=== PATIENT | female | born 1955 | race African-American/Black ===

== ENCOUNTER → 2018-12-06 | Outpatient (CLI) | payer MEDICARE, MEDICAID ==
[2018-12-06 10:13] LABS: ABSOLUTE EOSINOPHILS # (AUTO) 0.2 10^3/uL (0.0-0.6); ABSOLUTE LYMPHOCYTES (AUTO) 1.8 10^3/uL (0.5-4.7); ABSOLUTE MONOCYTES (AUTO) 0.3 10^3/uL (0.1-1.4); ABSOLUTE NEUT (AUTO) 2.4 10^3/uL (1.7-8.2); BASOPHILS % (AUTO) 0.9 % (0-2); EOSINOPHILS % (AUTO) 4.4 % (0-6); HEMATOCRIT 29.3 % (36.0-47.0); HEMOGLOBIN 9.8 g/dL (12.0-15.5); LYMPHOCYTES % (AUTO) 38.2 % (13-45); MEAN CORPUSCULAR HEMOGLOBIN 29.1 pg (27.0-33.4); MEAN CORPUSCULAR HGB CONC 33.5 g/dL (32.0-36.0); MEAN CORPUSCULAR VOLUME 87 fl (80-97); MONOCYTES % (AUTO) 6.7 % (3-13); PLATELET COUNT 146 10^3/uL (150-450); RED BLOOD COUNT 3.38 10^6/uL (3.72-5.28); RED CELL DISTRIBUTION WIDTH 13.9 % (11.5-14.0); SEGMENTED NEUTROPHILS % (AUTO) 49.8 % (42-78); TOTAL CELLS COUNTED % (AUTO) 100 %; WHITE BLOOD COUNT 4.8 10^3/uL (4.0-10.5)
[2018-12-06 10:44] LABS: ALANINE AMINOTRANSFERASE 9 U/L (9-52); ALBUMIN 4.1 g/dL (3.5-5.0); ALKALINE PHOSPHATASE 77 U/L (38-126); ANION GAP 7 (5-19); ASPARTATE AMINO TRANSFERASE 21 U/L (14-36); BILIRUBIN,DIRECT 0.4 mg/dL (0.0-0.4); BILIRUBIN,TOTAL 0.4 mg/dL (0.2-1.3); BLOOD UREA NITROGEN 23 mg/dL (7-20); CALCIUM 9.8 mg/dL (8.4-10.2); CARBON DIOXIDE 27 mmol/L (22-30); CHLORIDE 107 mmol/L (98-107); GLUCOSE 141 mg/dL (75-110); POTASSIUM 4.7 mmol/L (3.6-5.0); SODIUM 140.6 mmol/L (137-145); TOTAL PROTEIN 7.3 g/dL (6.3-8.2)
[2018-12-06 10:51] LABS: APPEARANCE,URINE CLEAR; BILIRUBIN,URINE NEGATIVE (NEGATIVE); COLOR,URINE STRAW; GLUCOSE, URINE NEGATIVE (NEGATIVE); KETONES,URINE NEGATIVE (NEGATIVE); LEUKOCYTE ESTERASE,URINE NEGATIVE (NEGATIVE); NITRITE,URINE NEGATIVE (NEGATIVE); PROTEIN,URINE 100 mg/dL (NEGATIVE); URINE SPECIFIC GRAVITY 1.008; UROBILINOGEN,URINE NEGATIVE mg/dL (<2.0)
--- NOTE | 2018-12-06 11:11 | RADIOLOGY REPORT (SQ) ---
EXAM DESCRIPTION: U/S RETROPERITON (RENAL/AORTA) COMPLETED DATE/TIME: 12/06/2018 9:39 am REASON FOR STUDY: CKD III (N18.3) N18.3 CHRONIC KIDNEY DISEASE, STAGE 3 (MODERATE) COMPARISON: None. TECHNIQUE: Dynamic and static grayscale images acquired of the kidneys and bladder and recorded on P ACS. Additional selected color Doppler and spectral images recorded. LIMITATIONS: None. FINDINGS: RIGHT KIDNEY: Normal size, 10.5 cm. Normal echogenicity. No solid or suspicious masses. No hydronephrosis. No calcifications. LEFT KIDNEY: Normal size, 9.4 cm. Normal echogenicity. No solid or suspicious masses. No hydronephro sis. No calcifications. BLADDER: No masses. Ureteral jets are not seen. OTHER FINDINGS: No other significant finding. IMPRESSION: NORMAL RENAL AND BLADDER ULTRASOUND. TECHNICAL DOCUMENTATION: JOB ID: [id number] [employer]- All Rights Reserved Reading location - IP/workstation name: [email or web address]
== END ==
LOC: RAD 08:44
PROVIDERS: ATTEND Internal Medicine Nephrology
DX: I12.9 Hypertensive chronic kidney disease with stage 1 through stage 4 chronic kidney disease, or unspecified chronic kidney disease (principal); N18.3 Chronic kidney disease, stage 3 (moderate); B20 Human immunodeficiency virus [HIV] disease
CPT/HCPCS: 36415; 76770; 80053; 81001; 85025; 86038; 86225

== ENCOUNTER 2019-12-23 07:51 | Outpatient (CLI) | payer MEDICARE, MEDICAID ==
[~2019-12-23 07:51] MED LIST: FERRIC CARBOXYMALTOSE 750 MG in NORMAL SALINE 250 ML IV PRN
[2019-12-23 08:11] VITALS: BP 157/78
== END 2019-12-23 09:35 | disposition home or self-care (01) ==
LOC: II 07:51 → 5TH 07:59 → II 09:35
PROVIDERS: ATTEND Physician Assistant Medical
DX: D50.8 Other iron deficiency anemias (principal)
CPT/HCPCS: 96365; J7050; J1439

== ENCOUNTER → 2020-04-10 | Outpatient (CLI) | payer MEDICARE, MEDICAID ==
--- NOTE | 2020-04-10 11:48 | RADIOLOGY REPORT (SQ) ---
EXAM DESCRIPTION: CHEST PA/LATERAL IMAGES COMPLETED DATE/TIME: 04/10/2020 10:49 am REASON FOR STUDY: ENCNTR FOR GENERAL ADULT MEDICAL EXAM W/O ABNORMAL FINDINGS COMPARISON: None. EXAM PARAMETERS: NUMBER OF VIEWS: two views TECHNIQUE: Digital Frontal and Lateral radiographic views of the chest acquired. RADIATION DOSE: NA LIMITATIONS: none FINDINGS: LUNGS AND PLEURA: No opacities, masses or pneumothorax. No pleural effusion. MEDIASTINUM AND HILAR STRUCTURES: No masses or contour abnormalities. HEART AND VASCULAR STRUCTURES: Heart normal size. No evidence for failure. BONES: No acute findings. HARDWARE: None in the chest. OTHER: No other significant finding. IMPRESSION: NO SIGNIFICANT RADIOGRAPHIC FINDING IN THE CHEST. TECHNICAL DOCUMENTATION: JOB ID: [id number] [employer]- All Rights Reserved Reading location - IP/workstation name: [email or web address]
--- NOTE | 2020-04-10 14:41 | EKG REPORT ---
SEVERITY:- ABNORMAL ECG - SINUS RHYTHM LEFT VENTRICULAR HYPERTROPHY ANTERIOR Q WAVES, POSSIBLY DUE TO LVH : Confirmed by: Tasha Menchaca MD 10-Apr-2020 14:41:03
== END ==
LOC: OD 10:25
PROVIDERS: ATTEND Nurse Practitioner
DX: Z00.00 Encounter for general adult medical examination without abnormal findings (principal)
CPT/HCPCS: 71046; 93005; 93010

== ENCOUNTER → 2020-04-18 | Outpatient (CLI) | payer MEDICARE, MEDICAID | LOC: WI 09:16 | PROVIDERS: ATTEND Nurse Practitioner | DX: Z12.31 Encounter for screening mammogram for malignant neoplasm of breast (principal) | CPT/HCPCS: 77063; 77067 ==

== ENCOUNTER → 2020-05-31 | Outpatient (CLI) | payer MEDICARE, MEDICAID ==
--- NOTE | 2020-05-31 14:44 | WOMENS IMAGING REPORT ---
EXAM DESCRIPTION: U/S BREAST UNILAT LIMITED IMAGES COMPLETED DATE/TIME: 05/31/2020 9:36 am REASON FOR STUDY: LEFT R92.8 OTHER ABNORMAL AND INCONCLUSIVE FINDINGS ON DIAGNOSTIC IMAGING; RIGHT R 92.8 OTHER ABNORMAL AND INCONCLUSIVE FINDINGS ON DIAGNOSTIC IMAGING R92.2 INCONCLUSIVE MAMMOGRAM COMPARISON: None. TECHNIQUE: Real-time and static grayscale imaging performed of the right and left breast targeted to the area of clinical/mammographic concern. Selected color Doppler images recorded. LIMITATIONS: None. FINDINGS: MASS: Indeterminate findings demonstrated on screening mammography within the right breast are revealed to be on the basis of a 3 mm simple cyst. No correlative finding is demonstrated for l eft breast mammographic findings. Focused evaluation of the area of concern reveals normal underlyin g parenchymal tissues. OTHER: No other significant finding. IMPRESSION: No suspicious findings detected by ultrasound. BIRAD: 1 Negative. RECOMMENDATION: RECOMMENDED FOLLOW-UP: Recommend continued annual screening mammography. COMMENT: The [employer] (ACR) has developed recommendations for screening MRI of the breasts in certain patient populations, to be used in conjunction with mammography. Breast MRI s urveillance may be appropriate for women with more than 20% lifetime risk of developing breast cancer as determined by genetic testing, significant family history of the disease, or history of mantle r adiation for Hodgkins Disease. ACR Practice Guidelines 2008. TECHNICAL DOCUMENTATION: JOB ID: [id number] 2010 [employer]- All Rights Reserved Reading location - IP/workstation name: [email or web address]
== END ==
LOC: WI 08:36
PROVIDERS: ATTEND Nurse Practitioner
DX: R92.8 Other abnormal and inconclusive findings on diagnostic imaging of breast (principal)
CPT/HCPCS: 76642

== ENCOUNTER 2020-08-03 06:22 | Day surgery (SDC) | payer MEDICARE, MEDICAID ==
[2020-08-03 06:49] LABS: HEMATOCRIT 33.6 % (36.0-47.0); HEMOGLOBIN 11.2 g/dL (12.0-15.5); MEAN CORPUSCULAR HGB CONC 33.2 g/dL (32.0-36.0); MEAN CORPUSCULAR VOLUME 84 fl (80-97); PLATELET COUNT 210 10^3/uL (150-450); RED BLOOD COUNT 3.99 10^6/uL (3.72-5.28); RED CELL DISTRIBUTION WIDTH 15.7 % (11.5-14.0); WHITE BLOOD COUNT 5.6 10^3/uL (4.0-10.5)
[2020-08-03 07:01] LABS: INTERNATIONAL RATION (INR) 0.85; PARTIAL THROMBOPLASTIN TIME 35.1 SEC (23.5-35.8); PROTHROMBIN TIME 11.8 SEC (11.4-15.4)
[2020-08-03 07:10] LABS: BLOOD UREA NITROGEN 48 mg/dL (7-20); GLUCOSE 112 mg/dL (75-110)
[2020-08-03] MEDS ORDERED: AMLODIPINE BESYLATE 10 MG TABLET PO ONE (09:30)
[2020-08-03] MEDS ORDERED: LISINOPRIL 10 MG TABLET PO ONE (09:30)
[2020-08-03] MEDS ORDERED: FENTANYL CITRATE INJ/PF 100 MCG/2 ML AMPUL ONE (11:09)
[2020-08-03] MEDS ORDERED: MIDAZOLAM 2 MG/2 ML INJ ONE (11:09)
[2020-08-03 13:29] VITALS: BP 186/101
== END 2020-08-03 12:00 | disposition home or self-care (01) ==
LOC: RAD 06:22
PROVIDERS: ATTEND Physician Assistant Medical
DX: I12.9 Hypertensive chronic kidney disease with stage 1 through stage 4 chronic kidney disease, or unspecified chronic kidney disease (principal); N18.4 Chronic kidney disease, stage 4 (severe); N17.9 Acute kidney failure, unspecified; R80.9 Proteinuria, unspecified; D63.1 Anemia in chronic kidney disease; L93.2 Other local lupus erythematosus; N25.0 Renal osteodystrophy; Z79.899 Other long term (current) drug therapy
CPT/HCPCS: 96372; 36415; 84520; 82565; 82947; 85027; 85610; 85730; J2250; A9270 ×2; J3010

== ENCOUNTER → 2020-08-08 | Outpatient (CLI) | payer MEDICARE, MEDICAID ==
--- NOTE | 2020-08-08 15:54 | RADIOLOGY REPORT (SQ) ---
EXAM DESCRIPTION: U/S RETROPERITON (RENAL/AORTA) IMAGES COMPLETED DATE/TIME: 08/08/2020 3:32 pm REASON FOR STUDY: N17.9 ACUTE KIDNEY FAILURE, UNSPECIFIED R80.1 PERSISTENT PROTEINURIA, UNSPECIFIED N17.9 ACUTE KIDNEY FAILURE, UNSPECIFIED COMPARISON: 12/06/2018 TECHNIQUE: Dynamic and static grayscale images acquired of the kidneys and bladder and recorded on P ACS. Additional selected color Doppler and spectral images recorded. LIMITATIONS: None. FINDINGS: RIGHT KIDNEY: The right kidney measures 10.7 cm in length. Echogenicity is increased. This is new from 2019. No solid or suspicious masses. No hydronephrosis. Small hypoechoic lesion consistent with simple cyst in the midpole. No calcifications. LEFT KIDNEY: The left kidney measures 8.7 cm in length. This is slightly smaller when compared to 2 019. The left kidney is echogenic. Normal echogenicity. No solid or suspicious masses. No hydr onephrosis. No calcifications. BLADDER: No masses. OTHER FINDINGS: No other significant finding. IMPRESSION: Echogenic kidneys consistent with medical renal disease. TECHNICAL DOCUMENTATION: JOB ID: [id number] 2010 [employer]- All Rights Reserved Reading location - IP/workstation name: [email or web address]
== END ==
LOC: RAD 14:47
PROVIDERS: ATTEND Internal Medicine Nephrology
DX: N17.9 Acute kidney failure, unspecified (principal); R80.1 Persistent proteinuria, unspecified; L93.1 Subacute cutaneous lupus erythematosus
CPT/HCPCS: 76770

== ENCOUNTER 2020-08-17 13:10 | Inpatient (IN) | payer MEDICARE, MEDICAID ==
--- NOTE | 2020-08-17 13:35 | ER Document Report ---
ED Medical Screen (RME) - General Chief Complaint: High Blood Pressure Stated Complaint: ELEVATED BLOOD PRESSURE Time Seen by Provider: 08/17/20 13:29 Mode of Arrival: Wheelchair Information source: Patient Notes: 65-year-old female presented the radiology for biopsies of her kidney and liver that were ordered by Dr. Keen to find out why her lower back and kidney were deteriorating. She states when she got to the procedure her blood pressure was too high and they would not do the procedure so they brought her to the emergency room to evaluate her high blood pressure. In the emergency room her blood pressure is 206/100 on the left and 206/92 on the right according to the vital signs taken in triage. She states she has never had high blood pressure but her mother has. She states she does not have renal failure and she does not do dialysis she just has problems with your kidney and that is what he is trying to find out with these biopsies which medications are causing the problem . Checked a manual blood pressure on her left arm and got 164/88. I have greeted and performed a rapid initial assessment of this patient. A comprehensive ED assessment and evaluation of the patient, analysis of test results and completion of medical decision making process will be conducted by an additional ED providers. TRAVEL OUTSIDE OF THE [place] IN LAST 30 DAYS: No - Related Data Allergies/Adverse Reactions: castor oil Allergy (Verified 08/03/20 06:34) ibuprofen [From Advil] Allergy (Verified 08/03/20 06:34) Past Medical History - Past Medical History Cardiac Medical History: Reports: Hx Hypertension Denies: Hx Coronary Artery Disease, Hx Heart Attack Pulmonary Medical History: Denies: Hx Asthma, Hx Bronchitis, Hx COPD, Hx Pneumonia Neurological Medical History: Denies: Hx Cerebrovascular Accident, Hx Seizures Musculoskeltal Medical History: Denies Hx Arthritis - Immunizations Hx Diphtheria, Pertussis, Tetanus Vaccination: No - UNKNOWN Physical Exam - Vital signs Vitals: Temp Pulse Resp BP Pulse Ox 97.5 F 60 16 206/92 H 100 08/17/20 13:17 08/17/20 13:17 08/17/20 13:17 08/17/20 13:17 08/17/20 13:17 Course - Vital Signs Vital signs: Temp Pulse Resp BP Pulse Ox 97.5 F 60 16 206/100 H 100 08/17/20 13:17 08/17/20 13:17 08/17/20 13:17 08/17/20 13:19 08/17/20 13:17
--- NOTE | 2020-08-17 14:56 | EKG REPORT ---
SEVERITY:- ABNORMAL ECG - SINUS BRADYCARDIA PROBABLE LEFT ATRIAL ABNORMALITY PROBABLE LEFT VENTRICULAR HYPERTROPHY : Confirmed by: Anderson Powell MD 17-Aug-2020 14:56:05
--- NOTE | 2020-08-17 15:10 | ER Document Report ---
ED Blood Pressure Problem - General Chief Complaint: High Blood Pressure Stated Complaint: ELEVATED BLOOD PRESSURE Time Seen by Provider: 08/17/20 13:29 Mode of Arrival: Wheelchair TRAVEL OUTSIDE OF THE [place] IN LAST 30 DAYS: No - HPI Notes: 65-year-old female to the emergency department from the surgery center with complaints of elevated blood pressure. She states that Dr. Keen, her caddy, had sent her to the surgery center for kidney biopsy. However, when she got there this morning her blood pressure was in the 200s. She was given 15 mg IV labetalol, 1 mg of Ativan, Vasotec and she did not have improvement of her symptoms. She states that she feels well. She denies any chest pain, shortness of breath, nausea, vomiting, diarrhea. Review of prior labs shows that her creatinine has significantly changed. She initially was 1.95 in November 2018 and today her creatinine is 7.32. She states that her caddy gave her blood pressure medicine and also a blood pressure medicine to take every Thursday/Thursday/Thursday should she experience leg swelling. She states she has not had any leg swelling and has not had to take that medicine. She is not sure what blood pressure medicine Dr. Keen gave her. Of note she is HIV positive and takes Joluca. - Related Data Allergies/Adverse Reactions: castor oil Allergy (Verified 08/17/20 14:21) ibuprofen [From Advil] Allergy (Verified 08/17/20 14:21) Past Medical History - General Information source: Patient - Social History Smoking Status: Never Smoker Frequency of alcohol use: None Drug Abuse: None Family History: None - Past Medical History Cardiac Medical History: Reports: Hx Hypertension Denies: Hx Coronary Artery Disease, Hx Heart Attack Pulmonary Medical History: Denies: Hx Asthma, Hx Bronchitis, Hx COPD, Hx Pneumonia Neurological Medical History: Denies: Hx Cerebrovascular Accident, Hx Seizures Musculoskeletal Medical History: Denies Hx Arthritis - Immunizations Hx Diphtheria, Pertussis, Tetanus Vaccination: No - UNKNOWN Review of Systems - Review of Systems Constitutional: denies: Chills, Fever EENT: No symptoms reported Cardiovascular: denies: Chest pain, Palpitations, Dyspnea, Syncope, Dizziness, Edema Respiratory: denies: Cough, Short of breath, Wheezing Gastrointestinal: denies: Abdominal pain, Diarrhea, Nausea, Vomiting Genitourinary: denies: Burning, Dysuria, Discharge, Frequency Musculoskeletal: denies: Back pain, Gout, Joint pain, Joint swelling -: Yes All other systems reviewed and negative Physical Exam - Vital signs Vitals: Temp Pulse Resp BP Pulse Ox 97.5 F 60 16 206/92 H 100 08/17/20 13:17 08/17/20 13:17 08/17/20 13:17 08/17/20 13:17 08/17/20 13:17 Interpretation: Hypertensive - General General appearance: Appears well, Alert In distress: None - HEENT Head: Normocephalic, Atraumatic Eyes: Normal Pupils: PERRL Neck: Normal, Supple - Respiratory Respiratory status: No respiratory distress Chest status: Nontender. No: Accessory muscle use Breath sounds: Normal. No: Rales, Rhonchi, Wheezing Chest palpation: Normal - Cardiovascular Rhythm: Regular Heart sounds: Normal auscultation Murmur: No Notes: no pedal edema - Abdominal Inspection: Normal Distension: No distension Bowel sounds: Normal Tenderness: Nontender Organomegaly: No organomegaly - Back Back: Normal, Nontender - Extremities General upper extremity: Normal inspection, Nontender, Normal color, Normal ROM, Normal temperature General lower extremity: Normal inspection, Nontender, Normal color, Normal ROM, Normal temperature, Normal weight bearing - Neurological Neuro grossly intact: Yes Cognition: Normal Orientation: AAOx4 Gillespie Coma Scale Eye Opening: Spontaneous Gillespie Coma Scale Verbal: Oriented Gillespie Coma Scale Motor: Obeys Commands Jimena Coma Scale Total: 15 Speech: Normal Cranial nerves: Normal Cerebellar coordination: Normal Motor strength normal: LUE, RUE, LLE, RLE Additional motor exam normals: Equal shoe stitcher Sensory: Normal - Psychological Associated symptoms: Normal affect, Normal mood - Skin Skin Temperature: Warm Skin Moisture: Dry Skin Color: Normal Course - Re-evaluation Re-evalutation: 08/17/20 16:13 Noted labs. Creatinine is absent. 7.32. Chest x-ray is negative. EKG is reassuring. Discussed in length further with patient. She continues to have accelerated blood pressure here in the emergency department and have given her hydralazine. She does not want to be admitted for further evaluation. She has medical capacity. Will page our caddy cost control specialist to discuss her. Was able to flush out a little bit better her blood pressure medicine that Dr. Keen has her on. She is taking clonidine 0.1 mg twice a day. She is also taking Lasix as needed for leg swelling Wednesdays or Fridays which she has not ne eded. She continues to take her antivirals. She states that her last CD4 count and viral load which was about 3 months ago was good. Have placed a page to Dr. Gan, caddy cost control specialist and will await her phone call. Did discuss this with my ER attending Dr. Greene and she agrees with the plan. 08/17/20 21:[address] Gan. She voices true concern about the patient going home. She feels like she needs to leave AMA if she will not stay. She states that they really need to get the renal biopsy to try to figure out what is going on with her renal dysfunction that is new starting in July of this year. She does not think that the patient needs dialysis. The patient can be convinced to stay, she would like for blood pressure control and a biopsy of her kidneys to be done. Spoke with the patient at length with her son bedside. I explained that it was important for her to stay so that her blood pressure could get under better control and so that the kidney biopsy could be done. Explained that risk of leaving could be stroke if her blood pressure continued to run exceptionally high. Patient states that she will stay for admission. Spoke with Dr. Linares, hospitalist. He agrees with excepting the patient. He is aware of my conversation with Dr. Gan. He will come down and see the patient. He does not want me to give any further blood pressure medicine. He will attempt to schedule a renal biopsy tomorrow if possible and if not possible tomorrow, will attempt at the beginning of the week. Impression: Accelerated hypertension with acute kidney injury. Uncertain cause of acute kidney injury. Patient has been to try to get renal biopsy twice now on keeps presenting with accelerated high blood pressure. Recently was changed to clonidine twice a day with furosemide as needed. She will be admitted to the hospitalist service. Patient agrees with the plan. - Vital Signs Vital signs: Temp Pulse Resp BP Pulse Ox 97.5 F 60 22 H 194/96 H 99 08/17/20 13:17 08/17/20 13:17 08/17/20 20:23 08/17/20 20:23 08/17/20 20:23 - Laboratory Result Diagrams: 08/17/20 15:05 08/17/20 15:05 Laboratory results interpreted by me: 08/17/20 08/17/20 08/17/20 15:05 15:05 15:05 RBC 3.68 L Hgb 10.1 L Hct 30.7 L RDW 15.0 H Eosinophils % (Manual) 7 H APTT 36.4 H Chloride 110 H BUN 45 H Creatinine 7.32 H Est GFR ( Amer) 7 L Est GFR (MDRD) Non-Af 6 L Albumin 3.1 L Urine Protein Urine Glucose (UA) 08/17/20 15:52 RBC Hgb Hct RDW Eosinophils % (Manual) APTT Chloride BUN Creatinine Est GFR ( Amer) Est GFR (MDRD) Non-Af Albumin Urine Protein >=500 H Urine Glucose (UA) 50 H - Diagnostic Test Radiology reviewed: Image reviewed, Reports reviewed Discharge - Discharge Clinical Impression: Accelerated hypertension, Acute kidney injury Condition: Stable Disposition: ADMITTED INPATIENT Admitting Provider: Milagros (Hospitalist) Unit Admitted: Telemetry
[2020-08-17 15:24] LABS: HEMATOCRIT 30.7 % (36.0-47.0); HEMOGLOBIN 10.1 g/dL (12.0-15.5); MEAN CORPUSCULAR HEMOGLOBIN 27.3 pg (27.0-33.4); MEAN CORPUSCULAR HGB CONC 32.8 g/dL (32.0-36.0); MEAN CORPUSCULAR VOLUME 83 fl (80-97); PLATELET COUNT 168 10^3/uL (150-450); RED BLOOD COUNT 3.68 10^6/uL (3.72-5.28); WHITE BLOOD COUNT 4.3 10^3/uL (4.0-10.5)
--- NOTE | 2020-08-17 15:29 | RADIOLOGY REPORT (SQ) ---
EXAM DESCRIPTION: CHEST SINGLE VIEW IMAGES COMPLETED DATE/TIME: 08/17/2020 3:16 pm REASON FOR STUDY: elevated blood pressure, kidney dysfunction COMPARISON: 04/10/2020 NUMBER OF VIEWS: One view. TECHNIQUE: Single frontal radiographic view of the chest acquired. LIMITATIONS: None. FINDINGS: LUNGS AND PLEURA: No opacities, masses or pneumothorax. No pleural effusion. Attenuated bl ood vessels and flattened pippa-diaphragms. MEDIASTINUM AND HILAR STRUCTURES: No masses. Contour normal. HEART AND VASCULAR STRUCTURES: Heart normal in size. Normal vasculature. BONES: No acute findings. HARDWARE: None in the chest. OTHER: No other significant finding. IMPRESSION: COPD. NO ACUTE RADIOGRAPHIC FINDING IN THE CHEST. TECHNICAL DOCUMENTATION: JOB ID: [id number] 2010 [employer]- All Rights Reserved Reading location - IP/workstation name: [email or web address]
[2020-08-17 15:31] LABS: INTERNATIONAL RATION (INR) 0.91; PROTHROMBIN TIME 12.5 SEC (11.4-15.4)
[2020-08-17 15:32] LABS: PARTIAL THROMBOPLASTIN TIME 36.4 SEC (23.5-35.8)
[2020-08-17 15:37] LABS: ALBUMIN 3.1 g/dL (3.5-5.0); ALKALINE PHOSPHATASE 105 U/L (38-126); ANION GAP 6 (5-19); ASPARTATE AMINO TRANSFERASE 20 U/L (14-36); BILIRUBIN,DIRECT 0.1 mg/dL (0.0-0.4); BILIRUBIN,TOTAL 0.2 mg/dL (0.2-1.3); BLOOD UREA NITROGEN 45 mg/dL (7-20); CALCIUM 9.4 mg/dL (8.4-10.2); CARBON DIOXIDE 22 mmol/L (22-30); CHLORIDE 110 mmol/L (98-107); GLUCOSE 98 mg/dL (75-110); POTASSIUM 4.4 mmol/L (3.6-5.0); TOTAL PROTEIN 6.4 g/dL (6.3-8.2)
[2020-08-17 15:52] LABS: ABSOLUTE LYMPHOCYTES# (MANUAL) 1.8 10^3/uL (0.5-4.7); ABSOLUTE MONOCYTES # (MANUAL) 0.4 10^3/uL (0.1-1.4); BASOPHILS % (MANUAL) 1 % (0-2); EOSINOPHILS % (MANUAL) 7 % (0-6); LYMPHOCYTES % (MANUAL) 40 % (13-45); MONOCYTES % (MANUAL) 9 % (3-13); SEGMENTED NEUTROPHILS % (MAN) 42 % (42-78); TOTAL CELLS COUNTED 100
[2020-08-17 15:54] LABS: ANISOCYTOSIS SLIGHT; OVALOCYTES SLIGHT; PLATELET COMMENT ADEQUATE; POIKILOCYTOSIS SLIGHT; TEAR DROP CELLS SLIGHT
[2020-08-17] MEDS ORDERED: HYDRALAZINE HCL INJ/PF 20 MG/1 ML SDV IV ONE (15:57)
[2020-08-17 16:27] LABS: APPEARANCE,URINE CLEAR; BILIRUBIN,URINE NEGATIVE (NEGATIVE); COLOR,URINE YELLOW; GLUCOSE, URINE 50 mg/dL (NEGATIVE); KETONES,URINE NEGATIVE (NEGATIVE); LEUKOCYTE ESTERASE,URINE NEGATIVE (NEGATIVE); NITRITE,URINE NEGATIVE (NEGATIVE); PROTEIN,URINE >=500 mg/dL (NEGATIVE); URINE SPECIFIC GRAVITY 1.012; UROBILINOGEN,URINE NEGATIVE mg/dL (<2.0)
[2020-08-17] MEDS ORDERED: ONDANSETRON HCL INJ/PF 4 MG/2 ML SDV IV PRN (19:00)
[2020-08-17] MEDS ORDERED: ACETAMINOPHEN 325 MG TABLET PO PRN (19:00)
[2020-08-17] MEDS ORDERED: ONDANSETRON 4 MG TAB.RAPDIS PO PRN (19:00)
[2020-08-17] MEDS ORDERED: LABETALOL HCL INJ 20 MG/4 ML DISP.SYRIN IV PRN ×2 (19:10→19:11)
--- NOTE | 2020-08-17 19:24 | PDOC H&P ---
History of Present Illness Admission Date/PCP: 08/17/20 17:54 History of Present Illness: YEN UPTON is a 65 year old female past medical history significant for CKD, HIV on ART, history of hep C treated previously, HTN, marijuana use who presents for hypertensive emergency with acute renal failure superimposed on CKD. Creatinine up to 7.32 with unclear baseline although previous creatinine in July was 6.39 in 2019 it was 1.95. Patient is followed by Dr. Keen in nephrology outpatient. Reportedly, there have been multiple attempts to get a renal biopsy to determine the etiology of her kidney failure and this has been unsuccessful due to the patient having severe accelerated hypertension each time the procedure is planned. On admission, patient's blood pressure was greater than 210 systolic. She states she only takes lisinopril daily and clonidine twice daily at home. Per records, it seems that she is on multiple other blood pressure medications in the past but these were stopped. Per patient, her systolic blood pressure is usually in the 140s when it is checked [facility]. Patient has known HIV and follows with Dr. Steve in [place] and infectious disease. Patient states she is in compliance with all her medications. Patient quit smoking cigarettes several years ago but smoked for total of 30 years and she continues to smoke marijuana daily for pain. Reportedly she takes Juluca for HIV. Does not appear to have this medication on formulary here and patient will need to bring in her own supply. Nephrology aware of admission and have been consulted. Possible patient may need dialysis in the near future. Past Medical History Cardiac Medical History: Reports: Hypertension Denies: Coronary Artery Disease, Myocardial Infarction Pulmonary Medical History: Denies: Asthma, Bronchitis, Chronic Obstructive Pulmonary Disease (COPD), Pneumonia Neurological Medical History: Denies: Seizures Musculoskeltal Medical History: Denies: Arthritis Hematology: Reports: Anemia - IRON INFUSIONS Past Surgical History Past Surgical History: Reports: None Social History Information Source: Patient, Emergency Med Personnel Lives with: Family Smoking Status: Former Smoker Hx Recreational Drug Use: Yes Drugs: Marijuana Hx Prescription Drug Abuse: No - Advance Directive Resuscitation Status: Full Code Surrogate healthcare decision maker:: Admitting diagnosis: Hypertensive emergency All aspects of code status discussed with patient/POA including cardioversion, chest compressions, and intubation and the patient/POA indicated they wish to be full code MPOA is designated as: SonJusto Joni Time spent: Greater than 16 minutes Family History Family History: None, CAD Parental Family History Reviewed: Yes Children Family History Reviewed: Yes Sibling(s) Family History Reviewed.: Yes Medication/Allergy Home Medications: Amlodipine Besylate [Norvasc 10 mg Tablet] 10 mg PO DAILY 08/17/20 Calcitriol [Rocaltrol] 0.25 mcg PO DAILY 08/17/20 Clonidine HCl [Clonidine HCl ER] 0.1 mg PO Q12 08/17/20 Dolutegravir/Rilpivirine [Juluca 50-25 mg Tablet] 1 tab PO DAILY 08/17/20 Furosemide [Lasix] 20 mg PO MOWEFR@1000 08/17/20 Lisinopril [Prinivil] 20 mg PO DAILY 08/17/20 Allergies/Adverse Reactions: castor oil Allergy (Verified 08/17/20 14:21) ibuprofen [From Advil] Allergy (Verified 08/17/20 14:21) Review of Systems All systems: reviewed and no additional remarkable complaints except as stated - Per HPI otherwise negative Physical Exam Vital Signs: Temp Pulse Resp BP Pulse Ox 97.5 F 60 20 215/99 H 100 08/17/20 13:17 08/17/20 13:17 08/17/20 18:00 08/17/20 17:21 08/17/20 18:00 Exam: General appearance: PRESENT: no acute distress, thin, chronically ill-appearing elderly -Serbian female Head exam: PRESENT: atraumatic, normocephalic Eye exam: PRESENT: conjunctiva pink. ABSENT: scleral icterus Mouth exam: PRESENT: moist Respiratory exam: PRESENT: clear to auscultation mary. ABSENT: rales, rhonchi, wheezes Cardiovascular exam: PRESENT: RRR. ABSENT: diastolic murmur, rubs, systolic murmur GI/Abdominal exam: PRESENT: normal bowel sounds, soft. ABSENT: distended, guarding, mass, organolmegaly, rebound, tenderness Neurological exam: PRESENT: alert, awake, oriented to person, oriented to place, oriented to time, oriented to situation Psychiatric exam: PRESENT: appropriate affect, normal mood Skin exam: PRESENT: dry, intact, warm Results Laboratory Results: 08/17/20 15:05 08/17/20 15:05 08/17/20 08/17/20 08/17/20 15:05 15:05 15:52 WBC 4.3 RBC 3.68 L Hgb 10.1 L Hct 30.7 L MCV 83 MCH 27.3 MCHC 32.8 RDW 15.0 H Plt Count 168 Seg Neutrophils % Not Reportable Sodium 138.1 Potassium 4.4 Chloride 110 H Carbon Dioxide 22 Anion Gap 6 BUN 45 H Creatinine 7.32 H Est GFR ( Amer) 7 L Glucose 98 Calcium 9.4 Total Bilirubin 0.2 AST 20 Alkaline Phosphatase 105 Total Protein 6.4 Albumin 3.1 L Urine Color YELLOW Urine Appearance CLEAR Urine pH 7.0 Ur Specific Verdi 1.012 Urine Protein >=500 H Urine Glucose (UA) 50 H Urine Ketones NEGATIVE Urine Blood NEGATIVE Urine Nitrite NEGATIVE Ur Leukocyte Esterase NEGATIVE Urine WBC (Auto) 4 Urine RBC (Auto) 1 Impressions: Chest X-Ray 08/17/20 15:04 IMPRESSION: COPD. NO ACUTE RADIOGRAPHIC FINDING IN THE CHEST. Assessment and Plan - Diagnosis (1) Hypertensive emergency Is this a current diagnosis for this admission?: Yes Plan: No CHF, only worsened renal function with SERAFIN on labs Started on nifedipine, clonidine, Cardura As needed IV labetalol for systolic blood pressure greater than 200 mmHg Echocardiogram Avoid dropping blood pressure too abruptly (2) Acute kidney injury superimposed on CKD Is this a current diagnosis for this admission?: Yes Plan: Creatinine up to 7.32 on admission, previously was 6.39 this past July and in 2019 it was 1.95 Unclear etiology, renal biopsy ordered Nephrology consulted: Patient follows with Dr. Andre WOOTEN (3) Nephrotic syndrome Is this a current diagnosis for this admission?: Yes Plan: UA with massive amount of proteinuria Nephrology following Renal biopsy (4) HTN (hypertension) Is this a current diagnosis for this admission?: Yes Plan: Treatment as above (5) HIV (human immunodeficiency virus infection) Is this a current diagnosis for this admission?: Yes Plan: Takes Juluca, not on formulary here, patient will need to bring in her own supply (6) History of hepatitis C Is this a current diagnosis for this admission?: Yes Plan: Treated and cured per patient (7) Former smoker Is this a current diagnosis for this admission?: Yes Plan: Smoked for 30 years, denies COPD (8) Marijuana use Is this a current diagnosis for this admission?: Yes Plan: Daily use for pain - Time Time Spent with patient: 35 or more minutes Smoking Cessation Education: 3 to 10 minutes Medications reviewed and adjusted accordingly: Yes Anticipated Discharge Disposition: Home, Self Care Anticipated Discharge Timeframe: within 72 hours - Inpatient Certification Based on my medical assessment, after consideration of the patient's comorbidities, presenting symptoms, or acuity I expect that the services needed warrant INPATIENT care.: Yes I certify that my determination is in accordance with my understanding of Medicare's requirements for reasonable and necessary INPATIENT services [42 CFR 412.3e].: Yes Medical Necessity: Significant Comorbidiites Make Outpatient Treatment Too Risky, Need Close Monitoring Due to Risk of Patient Decompensation, Risk of Complication if Not Cared For in Hospital, Risk of Diagnosis Which Will Require Inpatient Eval/Care/Monitoring
[2020-08-17] MEDS: CLONIDINE HCL 0.1 MG TABLET PO SCH (20:11)
[2020-08-17] MEDS: NIFEDIPINE 30 MG TAB.ER.24 PO SCH (22:00)
[2020-08-17] MEDS: DOXAZOSIN MESYLATE 2 MG TABLET PO SCH (22:00)
[2020-08-17] MEDS: HEPARIN SOD (PORCINE) 5,000 UNIT/ML 1 ML VIAL SUBCUT SCH (22:01)
[2020-08-18 05:43] LABS: ABSOLUTE EOSINOPHILS # (AUTO) 0.2 10^3/uL (0.0-0.6); ABSOLUTE LYMPHOCYTES (AUTO) 1.9 10^3/uL (0.5-4.7); ABSOLUTE MONOCYTES (AUTO) 0.3 10^3/uL (0.1-1.4); ABSOLUTE NEUT (AUTO) 1.3 10^3/uL (1.7-8.2); BASOPHILS % (AUTO) 1.1 % (0-2); EOSINOPHILS % (AUTO) 5.6 % (0-6); HEMATOCRIT 27.8 % (36.0-47.0); HEMOGLOBIN 9.4 g/dL (12.0-15.5); LYMPHOCYTES % (AUTO) 51.4 % (13-45); MEAN CORPUSCULAR HGB CONC 33.9 g/dL (32.0-36.0); MEAN CORPUSCULAR VOLUME 83 fl (80-97); MONOCYTES % (AUTO) 8.6 % (3-13); PLATELET COUNT 148 10^3/uL (150-450); RED BLOOD COUNT 3.36 10^6/uL (3.72-5.28); RED CELL DISTRIBUTION WIDTH 15.1 % (11.5-14.0); SEGMENTED NEUTROPHILS % (AUTO) 33.3 % (42-78); TOTAL CELLS COUNTED % (AUTO) 100 %; WHITE BLOOD COUNT 3.8 10^3/uL (4.0-10.5)
[2020-08-18] MEDS: CLONIDINE HCL 0.1 MG TABLET PO SCH ×3 (05:43→21:48)
[2020-08-18] MEDS: HEPARIN SOD (PORCINE) 5,000 UNIT/ML 1 ML VIAL SUBCUT SCH ×3 (05:43→21:48)
[2020-08-18 06:10] LABS: ANION GAP 6 (5-19); BLOOD UREA NITROGEN 46 mg/dL (7-20); CALCIUM 8.7 mg/dL (8.4-10.2); CARBON DIOXIDE 19 mmol/L (22-30); CHLORIDE 113 mmol/L (98-107); GLUCOSE 102 mg/dL (75-110); POTASSIUM 4.2 mmol/L (3.6-5.0)
[2020-08-18 06:22] LABS: FREE T4 (FREE THYROXINE) 1.01 ng/dL (0.78-2.19)
[2020-08-18 06:36] LABS: THYROID STIMULATING HORMONE 1.27 uIU/mL (0.47-4.68)
[2020-08-18] MEDS: NIFEDIPINE 30 MG TAB.ER.24 PO SCH ×2 (09:42→21:47)
[2020-08-18] MEDS: DOCUSATE SODIUM 100 MG CAPSULE PO SCH (09:43)
--- NOTE | 2020-08-18 17:31 | PDOC PROGRESS REPORT ---
Subjective Subjective:: YEN UPTON is a 65 year old female past medical history significant for CKD, HIV on ART, history of hep C treated previously, HTN, marijuana use who presents for hypertensive emergency with acute renal failure superimposed on CKD. Creatinine up to 7.32 with unclear baseline although previous creatinine in July was 6.39 in 2019 it was 1.95. Patient is followed by Dr. Keen in nephrology outpatient. Reportedly, there have been multiple attempts to get a renal biopsy to determine the etiology of her kidney failure and this has been unsuccessful due to the patient having severe accelerated hypertension each time the procedure is planned. On admission, patient's blood pressure was greater than 210 systolic. She states she only takes lisinopril daily and clonidine twice daily at home. Per records, it seems that she is on multiple other blood pressure medications in the past but these were stopped. Per patient, her systolic blood pressure is usually in the 140s when it is checked at [facility]. Patient has known HIV and follows with Dr. Steve in [place] and infectious disease. Patient states she is in compliance with all her medications. Patient quit smoking cigarettes several years ago but smoked for total of 30 years and she continues to smoke marijuana daily for pain. Reportedly she takes Juluca for HIV. Does not appear to have this medication on formulary here and patient will need to bring in her own supply. Nephrology aware of admission and have been consulted. Possible patient may need dialysis in the near future. 08/18/2020 Patient's blood pressure significantly improved and her creatinine is improved as well. Patient states she was given some advice from a nephew who is a nurse who told her to stop taking all of her blood pressure medications because he believes that it is harming her kidneys and the rest of her body as well. I asked the patient to not take this advice as it will most certainly cause severe damage to not only her kidneys with rest of her body. She seems to be in agreement with our plan for now. Plan for renal biopsy on Thursday. N.p.o. at midnight prior to this. Patient has no new complaints. I have started a mult iple myeloma work-up on her with SPEP/UPEP/FLC given she has large amount of protein in her urine, unexplained renal failure, unexplained musculoskeletal pains, and HIV which confers an increased risk for myeloma. Reason For Visit: HYPERTENSIVE EMERGENCY,SERAFIN ON CKD,NEPHROTIC Physical Exam Vital Signs: Temp Pulse Resp BP Pulse Ox 98.4 F 73 16 153/68 H 100 08/18/20 13:01 08/18/20 14:00 08/18/20 13:01 08/18/20 13:01 08/18/20 13:01 Intake & Output 08/17/20 08/18/20 08/19/20 06:59 06:59 06:59 Intake Total 480 Balance 480 Weight 54.5 kg Exam: General appearance: PRESENT: no acute distress, thin, chronically ill-appearing elderly -[place] female, states she feels better today Head exam: PRESENT: atraumatic, normocephalic Eye exam: PRESENT: conjunctiva pink. ABSENT: scleral icterus Mouth exam: PRESENT: moist Respiratory exam: PRESENT: clear to auscultation mary. ABSENT: rales, rhonchi, wheezes Cardiovascular exam: PRESENT: RRR. ABSENT: diastolic murmur, rubs, systolic murmur GI/Abdominal exam: PRESENT: normal bowel sounds, soft. ABSENT: distended, guarding, mass, organolmegaly, rebound, tenderness Neurological exam: PRESENT: alert, awake, oriented to person, oriented to place, oriented to time, oriented to situation Psychiatric exam: PRESENT: appropriate affect, normal mood Skin exam: PRESENT: dry, intact, warm Results Laboratory Results: 08/18/20 05:04 08/18/20 05:04 08/18/20 08/18/20 08/18/20 05:04 05:04 05:04 WBC 3.8 L RBC 3.36 L Hgb 9.4 L Hct 27.8 L MCV 83 MCH 28.0 MCHC 33.9 RDW 15.1 H Plt Count 148 L Seg Neutrophils % 33.3 L Sodium 138.2 Potassium 4.2 Chloride 113 H Carbon Dioxide 19 L Anion Gap 6 BUN 46 H Creatinine 6.60 H Est GFR ( Amer) 8 L Glucose 102 Calcium 8.7 Phosphorus 7.0 H Magnesium 1.7 TSH 1.27 Free T4 1.01 Impressions: Chest X-Ray 08/17/20 15:04 IMPRESSION: COPD. NO ACUTE RADIOGRAPHIC FINDING IN THE CHEST. Assessment and Plan - Diagnosis (1) Hypertensive emergency Is this a current diagnosis for this admission?: Yes (2) Acute kidney injury superimposed on CKD Is this a current diagnosis for this admission?: Yes (3) Nephrotic syndrome Is this a current diagnosis for this admission?: Yes (4) HTN (hypertension) Is this a current diagnosis for this admission?: Yes (5) HIV (human immunodeficiency virus infection) Is this a current diagnosis for this admission?: Yes (6) History of hepatitis C Is this a current diagnosis for this admission?: Yes (7) Former smoker Is this a current diagnosis for this admission?: Yes (8) Marijuana use Is this a current diagnosis for this admission?: Yes - Plan Summary Summary: (1) Hypertensive emergency Is this a current diagnosis for this admission?: Yes Plan: No CHF, only worsened renal function with SERAFIN on labs Started on nifedipine, clonidine, Cardura As needed IV labetalol for systolic blood pressure greater than 200 mmHg Echocardiogram pending Avoid dropping blood pressure too abruptly Significant improvement in blood pressure on current medications (2) Acute kidney injury superimposed on CKD Is this a current diagnosis for this admission?: Yes Plan: Creatinine up to 7.32 on admission, previously was 6.39 this past July and in 2019 it was 1.95 Unclear etiology, renal biopsy ordered Nephrology consulted: Patient follows with Dr. Andre WOOTEN (3) Nephrotic syndrome Is this a current diagnosis for this admission?: Yes Plan: UA with massive amount of proteinuria Nephrology following Renal biopsy on 08/20 (4) HTN (hypertension) Is this a current diagnosis for this admission?: Yes Plan: Treatment as above (5) HIV (human immunodeficiency virus infection) Is this a current diagnosis for this admission?: Yes Plan: Takes Juluca, not on formulary here, patient will need to bring in her own supply (6) History of hepatitis C Is this a current diagnosis for this admission?: Yes Plan: Treated and cured per patient (7) Former smoker Is this a current diagnosis for this admission?: Yes Plan: Smoked for 30 years, denies COPD (8) Marijuana use Is this a current diagnosis for this admission?: Yes Plan: Daily use for pain - Time Time Spent with patient: 15-24 minutes Medications reviewed and adjusted accordingly: Yes Anticipated Discharge Disposition: Home, Self Care Anticipated Discharge Timeframe: within 72 hours - Inpatient Certification Based on my medical assessment, after consideration of the patient's comorbidities, presenting symptoms, or acuity I expect that the services needed warrant INPATIENT care.: Yes I certify that my determination is in accordance with my understanding of Medicare's requirements for reasonable and necessary INPATIENT services [42 CFR 412.3e].: Yes Medical Necessity: Significant Comorbidiites Make Outpatient Treatment Too Risky, Need Close Monitoring Due to Risk of Patient Decompensation, Need for Surgery, Risk of Complication if Not Cared For in Hospital, Risk of Diagnosis Which Will Require Inpatient Eval/Care/Monitoring
[2020-08-18] MEDS: DOXAZOSIN MESYLATE 2 MG TABLET PO SCH (21:46)
[2020-08-19 04:50] LABS: ABSOLUTE EOSINOPHILS # (AUTO) 0.3 10^3/uL (0.0-0.6); ABSOLUTE LYMPHOCYTES (AUTO) 2.1 10^3/uL (0.5-4.7); ABSOLUTE MONOCYTES (AUTO) 0.3 10^3/uL (0.1-1.4); ABSOLUTE NEUT (AUTO) 0.9 10^3/uL (1.7-8.2); BASOPHILS % (AUTO) 1.1 % (0-2); HEMATOCRIT 27.4 % (36.0-47.0); HEMOGLOBIN 9.2 g/dL (12.0-15.5); LYMPHOCYTES % (AUTO) 57.2 % (13-45); MEAN CORPUSCULAR HEMOGLOBIN 27.9 pg (27.0-33.4); MEAN CORPUSCULAR HGB CONC 33.5 g/dL (32.0-36.0); MEAN CORPUSCULAR VOLUME 83 fl (80-97); MONOCYTES % (AUTO) 9.2 % (3-13); PLATELET COUNT 143 10^3/uL (150-450); SEGMENTED NEUTROPHILS % (AUTO) 25.5 % (42-78); TOTAL CELLS COUNTED % (AUTO) 100 %; WHITE BLOOD COUNT 3.6 10^3/uL (4.0-10.5)
[2020-08-19 05:12] LABS: ANION GAP 6 (5-19); BLOOD UREA NITROGEN 45 mg/dL (7-20); CALCIUM 8.9 mg/dL (8.4-10.2); CARBON DIOXIDE 21 mmol/L (22-30); CHLORIDE 110 mmol/L (98-107); GLUCOSE 112 mg/dL (75-110); POTASSIUM 4.5 mmol/L (3.6-5.0)
[2020-08-19] MEDS: CLONIDINE HCL 0.1 MG TABLET PO SCH ×3 (06:21→22:15)
[2020-08-19] MEDS: HEPARIN SOD (PORCINE) 5,000 UNIT/ML 1 ML VIAL SUBCUT SCH ×3 (06:22→22:27)
[2020-08-19] MEDS: NIFEDIPINE 30 MG TAB.ER.24 PO SCH ×2 (09:12→22:16)
[2020-08-19] MEDS: DOCUSATE SODIUM 100 MG CAPSULE PO SCH (09:13)
--- NOTE | 2020-08-19 14:36 | PDOC PROGRESS REPORT ---
Subjective Subjective:: YEN UPTON is a 65 year old female past medical history significant for CKD, HIV on ART, history of hep C treated previously, HTN, marijuana use who presents for hypertensive emergency with acute renal failure superimposed on CKD. Creatinine up to 7.32 with unclear baseline although previous creatinine in July was 6.39 in 2019 it was 1.95. Patient is followed by Dr. Keen in nephrology outpatient. Reportedly, there have been multiple attempts to get a renal biopsy to determine the etiology of her kidney failure and this has been unsuccessful due to the patient having severe accelerated hypertension each time the procedure is planned. On admission, patient's blood pressure was greater than 210 systolic. She states she only takes lisinopril daily and clonidine twice daily at home. Per records, it seems that she is on multiple other blood pressure medications in the past but these were stopped. Per patient, her systolic blood pressure is usually in the 140s when it is checked at [facility]. Patient has known HIV and follows with Dr. Steve in [place] and infectious disease. Patient states she is in compliance with all her medications. Patient quit smoking cigarettes several years ago but smoked for total of 30 years and she continues to smoke marijuana daily for pain. Reportedly she takes Juluca for HIV. Does not appear to have this medication on formulary here and patient will need to bring in her own supply. Nephrology aware of admission and have been consulted. Possible patient may need dialysis in the near future. 08/18/2020 Patient's blood pressure significantly improved and her creatinine is improved as well. Patient states she was given some advice from a nephew who is a nurse who told her to stop taking all of her blood pressure medications because he believes that it is harming her kidneys and the rest of her body as well. I asked the patient to not take this advice as it will most certainly cause severe damage to not only her kidneys with rest of her body. She seems to be in agreement with our plan for now. Plan for renal biopsy on Thursday. N.p.o. at midnight prior to this. Patient has no new complaints. I have [facility] her with SPEP/UPEP/FLC given she has large amount of protein in her urine, unexplained renal failure, unexplained musculoskeletal pains, and HIV which confers an increased risk for myeloma. 08/19/2020 Myeloma work-up is not yet back and this may still be pending when the patient is discharged. I discussed with her she was getting results from her outpatient physicians and she agreed. Renal biopsy tomorrow, n.p.o. at midnight tonight. Blood pressure has seen a substantial improvement from admission and systolics are hanging in the 130s currently. Creatinine is little bit higher at 6.98. I discussed with the patient that it is possible her kidneys have permanent damage in this baby her new personal normal creatinine. No new complaints. Reason For Visit: HYPERTENSIVE EMERGENCY,SERFAIN ON CKD,NEPHROTIC Physical Exam Vital Signs: Temp Pulse Resp BP Pulse Ox 98.5 F 91 11 L 133/77 H 100 08/19/20 09:07 08/19/20 07:48 08/19/20 07:48 08/19/20 07:48 08/19/20 07:48 Intake & Output 08/18/20 08/19/20 08/20/20 06:59 06:59 06:59 Intake Total 700 Balance 700 Weight 54.5 kg 56.3 kg Exam: General appearance: PRESENT: no acute distress, thin, chronically ill-appearing elderly -[place] female, states she is glad her blood pressure is more controlled Head exam: PRESENT: atraumatic, normocephalic Eye exam: PRESENT: conjunctiva pink. ABSENT: scleral icterus Mouth exam: PRESENT: moist Respiratory exam: PRESENT: clear to auscultation mary. ABSENT: rales, rhonchi, wheezes Cardiovascular exam: PRESENT: RRR. ABSENT: diastolic murmur, rubs, systolic murmur GI/Abdominal exam: PRESENT: normal bowel sounds, soft. ABSENT: distended, guarding, mass, organolmegaly, rebound, tenderness Neurological exam: PRESENT: alert, awake, oriented to person, oriented to place, oriented to time, oriented to situation Psychiatric exam: PRESENT: appropriate affect, normal mood Skin exam: PRESENT: dry, intact, warm Results Laboratory Results: 08/19/20 04:26 08/19/20 04:26 08/19/20 08/19/20 04:26 04:26 WBC 3.6 L RBC 3.30 L Hgb 9.2 L Hct 27.4 L MCV 83 MCH 27.9 MCHC 33.5 RDW 15.0 H Plt Count 143 L Seg Neutrophils % 25.5 L Sodium 136.9 L Potassium 4.5 Chloride 110 H Carbon Dioxide 21 L Anion Gap 6 BUN 45 H Creatinine 6.98 H Est GFR ( Amer) 7 L Glucose 112 H Calcium 8.9 Impressions: Chest X-Ray 08/17/20 15:04 IMPRESSION: COPD. NO ACUTE RADIOGRAPHIC FINDING IN THE CHEST. Assessment and Plan - Diagnosis (1) Hypertensive emergency Is this a current diagnosis for this admission?: Yes (2) Acute kidney injury superimposed on CKD Is this a current diagnosis for this admission?: Yes (3) Nephrotic syndrome Is this a current diagnosis for this admission?: Yes (4) HTN (hypertension) Is this a current diagnosis for this admission?: Yes (5) HIV (human immunodeficiency virus infection) Is this a current diagnosis for this admission?: Yes (6) History of hepatitis C Is this a current diagnosis for this admission?: Yes (7) Former smoker Is this a current diagnosis for this admission?: Yes (8) Marijuana use Is this a current diagnosis for this admission?: Yes - Plan Summary Summary: (1) Hypertensive emergency Is this a current diagnosis for this admission?: Yes Plan: No CHF, only worsened renal function with SERAFIN on labs Started on nifedipine, clonidine, Cardura As needed IV labetalol for systolic blood pressure greater than 200 mmHg Echocardiogram pending Avoid dropping blood pressure too abruptly Significant improvement in blood pressure on current medications (2) Acute kidney injury superimposed on CKD Is this a current diagnosis for this admission?: Yes Plan: Creatinine up to 7.32 on admission, previously was 6.39 this past July and in 2019 it was 1.95 Unclear etiology, renal biopsy ordered Nephrology consulted: Patient follows with Dr. Andre WOOTEN (3) Nephrotic syndrome Is this a current diagnosis for this admission?: Yes Plan: UA with massive amount of proteinuria Nephrology following Renal biopsy on 08/20 Multiple myeloma work-up pending (4) HTN (hypertension) Is this a current diagnosis for this admission?: Yes Plan: Treatment as above (5) HIV (human immunodeficiency virus infection) Is this a current diagnosis for this admission?: Yes Plan: Takes Juluca, not on formulary here, patient will need to bring in her own supply (6) History of hepatitis C Is this a current diagnosis for this admission?: Yes Plan: Treated and cured per patient (7) Former smoker Is this a current diagnosis for this admission?: Yes Plan: Smoked for 30 years, denies COPD (8) Marijuana use Is this a current diagnosis for this admission?: Yes Plan: Daily use for pain - Time Time Spent with patient: 25-34 minutes Medications reviewed and adjusted accordingly: Yes Anticipated Discharge Disposition: Home, Self Care Anticipated Discharge Timeframe: within 24 hours - Inpatient Certification Based on my medical assessment, after consideration of the patient's comorbidities, presenting symptoms, or acuity I expect that the services needed warrant INPATIENT care.: Yes I certify that my determination is in accordance with my understanding of Medicare's requirements for reasonable and necessary INPATIENT services [42 CFR 412.3e].: Yes Medical Necessity: Significant Comorbidiites Make Outpatient Treatment Too Risky, Need Close Monitoring Due to Risk of Patient Decompensation, Need for Surgery, Risk of Complication if Not Cared For in Hospital, Risk of Diagnosis Which Will Require Inpatient Eval/Care/Monitoring
[2020-08-19] MEDS: DOXAZOSIN MESYLATE 2 MG TABLET PO SCH (22:15)
[2020-08-20] MEDS: HEPARIN SOD (PORCINE) 5,000 UNIT/ML 1 ML VIAL SUBCUT SCH ×2 (06:07→14:07)
[2020-08-20] MEDS: CLONIDINE HCL 0.1 MG TABLET PO SCH ×2 (06:07→14:08)
[2020-08-20 07:02] LABS: ABSOLUTE EOSINOPHILS # (AUTO) 0.3 10^3/uL (0.0-0.6); ABSOLUTE LYMPHOCYTES (AUTO) 1.7 10^3/uL (0.5-4.7); ABSOLUTE MONOCYTES (AUTO) 0.3 10^3/uL (0.1-1.4); ABSOLUTE NEUT (AUTO) 0.9 10^3/uL (1.7-8.2); BASOPHILS % (AUTO) 1.4 % (0-2); EOSINOPHILS % (AUTO) 7.9 % (0-6); HEMATOCRIT 27.5 % (36.0-47.0); HEMOGLOBIN 9.3 g/dL (12.0-15.5); LYMPHOCYTES % (AUTO) 52.9 % (13-45); MEAN CORPUSCULAR VOLUME 82 fl (80-97); MONOCYTES % (AUTO) 10.3 % (3-13); PLATELET COUNT 140 10^3/uL (150-450); RED BLOOD COUNT 3.34 10^6/uL (3.72-5.28); RED CELL DISTRIBUTION WIDTH 15.1 % (11.5-14.0); SEGMENTED NEUTROPHILS % (AUTO) 27.5 % (42-78); TOTAL CELLS COUNTED % (AUTO) 100 %; WHITE BLOOD COUNT 3.2 10^3/uL (4.0-10.5)
[2020-08-20 07:28] LABS: ANION GAP 7 (5-19); BLOOD UREA NITROGEN 46 mg/dL (7-20); CALCIUM 8.9 mg/dL (8.4-10.2); CARBON DIOXIDE 18 mmol/L (22-30); CHLORIDE 110 mmol/L (98-107); GLUCOSE 107 mg/dL (75-110); POTASSIUM 4.6 mmol/L (3.6-5.0)
[2020-08-20] MEDS ORDERED: MIDAZOLAM 2 MG/2 ML INJ ONE (09:13)
[2020-08-20] MEDS ORDERED: FENTANYL CITRATE INJ/PF 100 MCG/2 ML AMPUL ONE (09:14)
[2020-08-20] MEDS: DOCUSATE SODIUM 100 MG CAPSULE PO SCH (10:36)
[2020-08-20] MEDS: NIFEDIPINE 30 MG TAB.ER.24 PO SCH (10:36)
--- NOTE | 2020-08-20 12:51 | RADIOLOGY REPORT (SQ) ---
EXAM DESCRIPTION: CT BIOPSY RENAL IMAGES COMPLETED DATE/TIME: 08/20/2020 10:06 am REASON FOR STUDY: SERAFIN/CKD, nephrotic syndrome, HIV, Severe HTN COMPARISON: None. RADIATION DOSE: CT Rad equipment meets quality standard of care and radiation dose reduction techniq ues were employed. CTDIvol: 4.9 - 19.0 mGy. DLP: 549 mGy-cm. mGy. LIMITATIONS: None. PROCEDURE: After obtaining informed consent and explaining the risks and benefits of conscious sedat ion,the patient agreed to the procedure. Preliminary CT scanning to localize the biopsy site was performed. A site was marked on the left kid bhumi and time out was performed. Procedure was performed using CT fluoroscopy. Total exposure time: [address] fluoroscopic images were obtained and saved to PACS. IV conscious sedation was administered and physician direction by the registered nurse using 1 millig noe of Versed and 50 micrograms of fentanyl. Physiologic monitoring was provided before, during, and after sedation. The total sedation time was 30 minutes. Documentation face to face time, the performing proceduralist, spent monitoring the patient: 10 minut es. After sterile skin prep with 1% lidocaine for skin and deep tissue anesthesia, the left kidney was lo calized. A coaxial 20 gauge needle was used to obtain 4 cores of tissue from the left kidney. The bi opsy tract was embolized with Gelfoam. All CT scanners at this facility use dose modulation, iterative reconstruction, and/or weight based d osing when appropriate to reduce radiation dose to as low as reasonably achievable (ALARA). [facility]: Dose Right [facility]: CareDose [facility]: Dose Right [facility]: Teradose 4D [facility]: Zero Motorcycles FINDINGS: There were no immediate complications. Specimen was carried to cytology on sterile saline gauze and submitted to the paper making machine operator for processing. Pathology is pending at the time of dict ation. IMPRESSION: CT GUIDED LEFT KIDNEY CORTICAL BIOPSY. COMMENT: Patient medication list reviewed:Yes- Quality ID# [id number]:Eligible professional attests to docu menting in the medical record they obtained, updated, or reviewed the patient's current medications.. TECHNICAL DOCUMENTATION: JOB ID: [id number] Quality ID #[id number]: Final reports for procedures using fluoroscopy that document radiation exposure julianna gee, or exposure time and number of fluorographic images (if radiation exposure indices are not avail able) Quality ID # [id number]: Final reports with documentation of one or more dose reduction techniques (e.g., Au tomated exposure control, adjustment of the mA and/or kV according to patient size, use of iterative reconstruction technique) 2010 [employer]- All Rights Reserved Reading location - IP/workstation name: [email or web address]
[2020-08-20 14:34] VITALS: BP 206/100
[2020-08-20 15:37] LABS: FREE LAMBDA LIGHT CHAINS 74.1 mg/L (5.7-26.3)
[2020-08-20 16:37] LABS: ALBUMIN 2 2.5 g/dL (2.9-4.4); BETA GLOBULINS 0.7 g/dL (0.7-1.3); GAMMA GLOBULIN 0.7 g/dL (0.4-1.8); GLOBULIN TOTAL 2.6 g/dL (2.2-3.9); MONOCLONAL SPIKE Not Observed g/dL (Not Observ); PROTEIN TOTAL SERUM 5.1 g/dL (6.0-8.5)
[2020-08-20 17:21] LABS: KAPPA LAMBDA RATIO 2.02 (0.26-1.65)
--- NOTE | 2020-08-20 18:49 | PDOC DISCHARGE SUMMARY ---
Impression - Admit/DC Date/PCP Admission Date/Primary Care Provider: 08/17/20 17:54 Discharge Date: 08/20/20 - Discharge Diagnosis (1) Hypertensive emergency Is this a current diagnosis for this admission?: Yes (2) Acute kidney injury superimposed on CKD Is this a current diagnosis for this admission?: Yes (3) Nephrotic syndrome Is this a current diagnosis for this admission?: Yes (4) HTN (hypertension) Is this a current diagnosis for this admission?: Yes (5) HIV (human immunodeficiency virus infection) Is this a current diagnosis for this admission?: Yes (6) History of hepatitis C Is this a current diagnosis for this admission?: Yes (7) Former smoker Is this a current diagnosis for this admission?: Yes (8) Marijuana use Is this a current diagnosis for this admission?: Yes - Assessment Summary: (1) Hypertensive emergency Is this a current diagnosis for this admission?: Yes Plan: No CHF, only worsened renal function with SERAFIN on labs Started on nifedipine, clonidine, Cardura As needed IV labetalol for systolic blood pressure greater than 200 mmHg Echocardiogram pending Avoid dropping blood pressure too abruptly in the future if hypertensive emergency recurs Significant improvement in blood pressure on current medications (2) Acute kidney injury superimposed on CKD Is this a current diagnosis for this admission?: Yes Plan: Creatinine up to 7.32 on admission, previously was 6.39 this past July and in 2019 it was 1.95 Unclear etiology, renal biopsy ordered Nephrology consulted: Patient follows with Dr. Andre WOOTEN (3) Nephrotic syndrome Is this a current diagnosis for this admission?: Yes Plan: UA with massive amount of proteinuria Nephrology following Renal biopsy on 08/20 Multiple myeloma work-up pending (4) HTN (hypertension) Is this a current diagnosis for this admission?: Yes Plan: Treatment as above (5) HIV (human immunodeficiency virus infection) Is this a current diagnosis for this admission?: Yes Plan: Takes Juluca, not on formulary here, patient will need to bring in her own supply (6) History of hepatitis C Is this a current diagnosis for this admission?: Yes Plan: Treated and cured per patient (7) Former smoker Is this a current diagnosis for this admission?: Yes Plan: Smoked for 30 years, denies COPD (8) Marijuana use Is this a current diagnosis for this admission?: Yes Plan: Daily use for pain - Additional Information Resuscitation Status: Full Code Discharge Diet: As Tolerated, Other (Comments) - renal Discharge Activity: Activity As Tolerated, Balance Activity w/Rest Prescriptions: Doxazosin Mesylate [Cardura 4 mg Tablet] 4 mg PO QHS #30 tablet Clonidine HCl [Catapres] 0.2 mg PO TID #30 tablet Nifedipine [Nifedipine ER] 60 mg PO BID #60 tab.er.24 Home Medications: Calcitriol [Rocaltrol] 0.25 mcg PO DAILY 08/17/20 Dolutegravir/Rilpivirine [Juluca 50-25 mg Tablet] 1 tab PO DAILY 08/17/20 Clonidine HCl [Catapres] 0.2 mg PO TID #30 tablet 08/20/20 Doxazosin Mesylate [Cardura 4 mg Tablet] 4 mg PO QHS #30 tablet 08/20/20 Nifedipine [Nifedipine ER] 60 mg PO BID #60 tab.er.24 08/20/20 History of Present Illiness History of Present Illness: YEN UPTON is a 65 year old female past medical history significant for CKD, HIV on ART, history of hep C treated previously, HTN, marijuana use who presents for hypertensive emergency with acute renal failure superimposed on CKD. Creatinine up to 7.32 with unclear baseline although previous creatinine in July was 6.39 in 2018 it was 1.95. Patient is followed by Dr. Keen in nephrology outpatient. Reportedly, there have been multiple attempts to get a renal biopsy to determine the etiology of her kidney failure and this has been unsuccessful due to the patient having severe accelerated hypertension each time the procedure is planned. On admission, patient's blood pressure was greater than 210 systolic. She states she only takes lisinopril daily and clonidine twice daily at home. Per records, it seems that she is on multiple other blood pressure medications in the past but these were stopped. Per patient, her systolic blood pressure is usually in the 140s when it is checked at [facility]. Patient has known HIV and follows with Dr. Steve in [place] and infectious disease. Patient states she is in compliance with all her medications. Patient quit smoking cigarettes several years ago but smoked for total of 30 years and she continues to smoke marijuana daily for pain. Reportedly she takes Juluca for HIV. Does not appear to have this medication on formulary here and patient will need to bring in her own supply. Nephrology aware of admission and have been consulted. Possible patient may need dialysis in the near future. Physical Exam Vital Signs: Temp Pulse Resp BP Pulse Ox 98.4 F 72 20 158/90 H 99 08/20/20 12:00 08/20/20 12:00 08/20/20 12:00 08/20/20 12:00 08/20/20 12:00 Intake & Output 08/19/20 08/20/20 08/21/20 06:59 06:59 06:59 Intake Total 700 260 486 Balance 700 260 486 Weight 56.3 kg 56.3 kg Exam: General appearance: PRESENT: no acute distress, thin, -[place] female, smiling and happy about going home today Head exam: PRESENT: atraumatic, normocephalic Eye exam: PRESENT: conjunctiva pink. ABSENT: scleral icterus Mouth exam: PRESENT: moist Respiratory exam: PRESENT: clear to auscultation mary. ABSENT: rales, rhonchi, wheezes Cardiovascular exam: PRESENT: RRR. ABSENT: diastolic murmur, rubs, systolic murmur GI/Abdominal exam: PRESENT: normal bowel sounds, soft. ABSENT: distended, guarding, mass, organolmegaly, rebound, tenderness Neurological exam: PRESENT: alert, awake, oriented to person, oriented to place, oriented to time, oriented to situation Psychiatric exam: PRESENT: appropriate affect, normal mood Skin exam: PRESENT: dry, intact, warm Results Laboratory Results: WBC 3.2 10^3/uL (4.0-10.5) L 08/20/20 06:36 RBC 3.34 10^6/uL (3.72-5.28) L 08/20/20 06:36 Hgb 9.3 g/dL (12.0-15.5) L 08/20/20 06:36 Hct 27.5 % (36.0-47.0) L 08/20/20 06:36 MCV 82 fl (80-97) 08/20/20 06:36 MCH 28.0 pg (27.0-33.4) 08/20/20 06:36 MCHC 34.0 g/dL (32.0-36.0) 08/20/20 06:36 RDW 15.1 % (11.5-14.0) H 08/20/20 06:36 Plt Count 140 10^3/uL (150-450) L 08/20/20 06:36 Lymph % (Auto) 52.9 % (13-45) H 08/20/20 06:36 Ballard % (Auto) 10.3 % (3-13) 08/20/20 06:36 Eos % (Auto) 7.9 % (0-6) H 08/20/20 06:36 Baso % (Auto) 1.4 % (0-2) 08/20/20 06:36 Absolute Neuts (auto) 0.9 10^3/uL (1.7-8.2) L 08/20/20 06:36 Absolute Lymphs (auto) 1.7 10^3/uL (0.5-4.7) 08/20/20 06:36 Absolute Monos (auto) 0.3 10^3/uL (0.1-1.4) 08/20/20 06:36 Absolute Eos (auto) 0.3 10^3/uL (0.0-0.6) 08/20/20 06:36 Absolute Basos (auto) 0.0 10^3/uL (0.0-0.2) 08/20/20 06:36 Total Counted 100 08/17/20 15:05 Seg Neutrophils % 27.5 % (42-78) L 08/20/20 06:36 Seg Neuts % (Manual) 42 % (42-78) 08/17/20 15:05 Lymphocytes % (Manual) 40 % (13-45) 08/17/20 15:05 Atypical Lymphs % 1 % (0) 08/17/20 15:05 Monocytes % (Manual) 9 % (3-13) 08/17/20 15:05 Eosinophils % (Manual) 7 % (0-6) H 08/17/20 15:05 Basophils % (Manual) 1 % (0-2) 08/17/20 15:05 Abs Neuts (Manual) 1.8 10^3/uL (1.7-8.2) 08/17/20 15:05 Abs Lymphs (Manual) 1.8 10^3/uL (0.5-4.7) 08/17/20 15:05 Abs Monocytes (Manual) 0.4 10^3/uL (0.1-1.4) 08/17/20 15:05 Absolute Eos (Manual) 0.3 10^3/uL (0.0-0.6) 08/17/20 15:05 Abs Basophils (Manual) 0.0 10^3/uL (0.0-0.2) 08/17/20 15:05 Platelet Comment ADEQUATE 08/17/20 15:05 Poikilocytosis SLIGHT 08/17/20 15:05 Anisocytosis SLIGHT 08/17/20 15:05 Tear Drop Cells SLIGHT 08/17/20 15:05 Ovalocytes SLIGHT 08/17/20 15:05 PT 12.5 SEC (11.4-15.4) 08/17/20 15:05 INR 0.91 08/17/20 15:05 APTT 36.4 SEC (23.5-35.8) H 08/17/20 15:05 Sodium 135.0 mmol/L (137-145) L 08/20/20 06:36 Potassium 4.6 mmol/L (3.6-5.0) 08/20/20 06:36 Chloride 110 mmol/L (98-107) H 08/20/20 06:36 Carbon Dioxide 18 mmol/L (22-30) L 08/20/20 06:36 Anion Gap 7 (5-19) 08/20/20 06:36 BUN 46 mg/dL (7-20) H 08/20/20 06:36 Creatinine 6.62 mg/dL (0.52-1.25) H 08/20/20 06:36 Est GFR ( Amer) 8 (>60) L 08/20/20 06:36 Est GFR (MDRD) Non-Af 6 (>60) L 08/20/20 06:36 Glucose 107 mg/dL (75-110) 08/20/20 06:36 Calcium 8.9 mg/dL (8.4-10.2) 08/20/20 06:36 Phosphorus 7.0 mg/dL (2.5-4.5) H 08/18/20 05:04 Magnesium 1.7 mg/dL (1.6-2.3) 08/18/20 05:04 Total Bilirubin 0.2 mg/dL (0.2-1.3) 08/17/20 15:05 Direct Bilirubin 0.1 mg/dL (0.0-0.4) 08/17/20 15:05 Neonat Total Bilirubin Not Reportable 08/17/20 15:05 Neonat Direct Bilirubin Not Reportable 08/17/20 15:05 Neonat Indirect Bili Not Reportable 08/17/20 15:05 AST 20 U/L (14-36) 08/17/20 15:05 ALT 8 U/L (<35) 08/17/20 15:05 Alkaline Phosphatase 105 U/L (38-126) 08/17/20 15:05 Total Protein 6.4 g/dL (6.3-8.2) 08/17/20 15:05 Albumin 3.1 g/dL (3.5-5.0) L 08/17/20 15:05 TSH 1.27 uIU/mL (0.47-4.68) 08/18/20 05:04 Free T4 1.01 ng/dL (0.78-2.19) 08/18/20 05:04 Urine Color YELLOW 08/17/20 15:52 Urine Appearance CLEAR 08/17/20 15:52 Urine pH 7.0 (5.0-9.0) 08/17/20 15:52 Ur Specific Cunningham 1.012 08/17/20 15:52 Urine Protein >=500 mg/dL (NEGATIVE) H 08/17/20 15:52 Urine Glucose (UA) 50 mg/dL (NEGATIVE) H 08/17/20 15:52 Urine Ketones NEGATIVE mg/dL (NEGATIVE) 08/17/20 15:52 Urine Blood NEGATIVE (NEGATIVE) 08/17/20 15:52 Urine Nitrite NEGATIVE (NEGATIVE) 08/17/20 15:52 Urine Bilirubin NEGATIVE (NEGATIVE) 08/17/20 15:52 Urine Urobilinogen NEGATIVE mg/dL (<2.0) 08/17/20 15:52 Ur Leukocyte Esterase NEGATIVE (NEGATIVE) 08/17/20 15:52 Urine WBC (Auto) 4 /HPF 08/17/20 15:52 Urine RBC (Auto) 1 /HPF 08/17/20 15:52 U Hyaline Cast (Auto) 1 /LPF 08/17/20 15:52 Squamous Epi Cells Auto 3 /HPF 08/17/20 15:52 Urine Mucus (Auto) RARE /LPF 08/17/20 15:52 Urine Ascorbic Acid NEGATIVE (NEGATIVE) 08/17/20 15:52 Impressions: Chest X-Ray 08/17/20 15:04 IMPRESSION: COPD. NO ACUTE RADIOGRAPHIC FINDING IN THE CHEST. Renal Biopsy CT 08/20/20 00:00 IMPRESSION: CT GUIDED LEFT KIDNEY CORTICAL BIOPSY. Plan Plan of Treatment: Follow-up PCP Follow-up with nephrology Follow-up with infectious disease Renal biopsy, TTE, and multiple myeloma results pending: Tight Barrel Inspector will discuss the results with the patient Time Spent: Greater than 30 Minutes Stroke Is this a Stroke Patient?: No Acute Heart Failure Is this a Heart Failure Patient?: No
[2020-08-20] MEDS ORDERED: DOXAZOSIN MESYLATE 4 MG TABLET PO SCH (22:00)
--- NOTE | 2020-08-20 22:34 | XCELERA REPORT ---
[address] [address] Transthoracic Echocardiogram Report Name: YEN UPTON Age: 65 yrs Gender: Female : 1955 Patient Status: Inpatient Patient Location: [address] [place], [place] [address]A Study Date: 08/20/2020 11:21 AM Height: 66 in Weight: 125 lb BSA: 1.6 m2 Reason For Study: severe HTN Ordering Physician: NIKOS MORIN Performed By: Susan Contreras Interpretation Summary LEFT VENTRICLE: LV Systolic function: LVEF is felt to be within normal limits. Best estimate is approximately LVEF is 60 to 65%. LV Diastolic Function: Grade II diastolic dysfunction noted. Wall motion: No definite regional wall motion abnormalities are noted. Left ventricular chamber size: is within normal limit. Left ventricular wall thickness: is increased indicative of Mild LVH. RIGHT VENTRICLE: RV systolic function: is felt to be within normal limit. Right Ventricle Size: is within normal limits. LEFT ATRIUM size: WNL. RIGHT ATRIUM size: is within normal limit. INTER ATRIAL SEPTUM: No definite atrial septal defect noted however a small PFO could be missed. AORTIC ROOT: seems to be within normal limits. ASCENDING AORTA: is not well visualized. INFERIOR VENA CAVA: was not well visualized. VALVES: MITRAL VALVE: Leaflets are mildly thickened. Mobility seems to be within normal limits. Mitral Regurgitation: Trace mitral regurgitation is noted. Mitral Stenosis: No mitral stenosis noted. Mitral valve prolapse: none noted. AORTIC VALVE: seems to be trileaflet with mild thickening but adequate excursion. Aortic stenosis: No aortic stenosis noted. Aortic regurgitation: trace aortic incompetence noted. TRICUSPID VALVE: mobility and structures within normal limit. Tricuspid stenosis: no tricuspid stenosis noted. Tricuspid regurgitation: Trace tricuspid regurgitation noted. Estimated RVSP: cannot be accurately commented upon but possibly at upper limit of normal. PULMONARY VALVE: was not well visualized but no significant abnormalities suspected. Pulmonary stenosis: no pulmonary stenosis noted. Pulmonary regurgitation: mild pulmonary regurgitation noted. MASSES AND THROMBUS: No definite intracardiac thrombus or masses are noted. PERICARDIUM: No pericardial effusion was noted. IMPRESSION: 1. Normal LVEF. 2. Mild LVH noted. 3. Grade II [mild] Diastolic Dysfunction noted. 4. No significant valvular stenosis or regurgitation noted. MMode/2D Measurements & Calculations RVDd: 1.8 cm LVIDd: 4.8 cm FS: 28.5 % Ao root diam: 2.6 cm IVSd: 1.1 cm LVIDs: 3.4 cm EDV(Teich): 108.9 ml LVPWd: 0.99 cm ESV(Teich): 49.1 ml Ao root area: 5.4 cm2 EF(Teich): 54.9 % Doppler Measurements & Calculations MV E max brian: MV dec slope: Ao V2 max: LV V1 max P.3 cm/sec 220.9 cm/sec2 139.3 cm/sec 4.0 mmHg MV A max brian: MV dec time: 0.30 secAo max P.8 mmHgLV V1 max: 79.8 cm/sec 99.6 cm/sec MV E/A: 0.83 PA V2 max: PI end-d brian: TR max brian: 82.6 cm/sec 118.7 cm/sec 235.5 cm/sec PA max P.7 mmHg TR max P.2 mmHg : NIKOS MORIN Shyamal
== END 2020-08-20 15:01 | disposition home or self-care (01) | DRG 305 ==
LOC: ER 13:10 → EH 17:54 → 3W 20:53 → 4S 08-19 10:44
PROVIDERS: ADMIT Internal Medicine; ATTEND Internal Medicine
PROC: 0TB13ZX Excision of Left Kidney, Percutaneous Approach, Diagnostic (ICD-10-PCS; principal; 2020-08-20)
PROC: B24BZZ4 Ultrasonography of Heart with Aorta, Transesophageal (ICD-10-PCS; 2020-08-20)
DX: I16.1 Hypertensive emergency (principal); N17.9 Acute kidney failure, unspecified; I12.9 Hypertensive chronic kidney disease with stage 1 through stage 4 chronic kidney disease, or unspecified chronic kidney disease; Z21 Asymptomatic human immunodeficiency virus [HIV] infection status; F12.90 Cannabis use, unspecified, uncomplicated; D63.1 Anemia in chronic kidney disease; N05.9 Unspecified nephritic syndrome with unspecified morphologic changes; Z86.19 Personal history of other infectious and parasitic diseases; Z87.891 Personal history of nicotine dependence; Z79.899 Other long term (current) drug therapy; Z88.8 Allergy status to other drugs, medicaments and biological substances
CPT/HCPCS: 36415; 50200; 71045; 80048; 80053; 81001; 82088; 83735; 83883; 84100; 84156; 84165; 84166; 84244; 84439; 84443; 85025; 85610; 85730; 86335; 88313; 88346; 88348; 93005; 93010; 93306; 96374; 99285; J0360; J1644; J2250; J3010; J3490; S0119

== ENCOUNTER → 2020-08-17 | Day surgery (SDC) | payer MEDICARE, MEDICAID ==
[~2020-08-17] MED LIST changes: +ENALAPRILAT DIHYDRATE INJ/PF 1.25 MG/1 ML SDV IV ONE; -FERRIC CARBOXYMALTOSE 750 MG in NORMAL SALINE 250 ML IV PRN; +LABETALOL HCL INJ 20 MG/4 ML DISP.SYRIN IV ONE; +LORAZEPAM INJ 2 MG/1 ML VIAL IV ONE; +VASOPRESSIN INJ 20 UNIT/1 ML VIAL ONE
[2020-08-17 07:26] LABS: INTERNATIONAL RATION (INR) 0.91; PROTHROMBIN TIME 12.5 SEC (11.4-15.4)
[2020-08-17 07:27] LABS: PARTIAL THROMBOPLASTIN TIME 35.2 SEC (23.5-35.8)
[2020-08-17 07:33] LABS: HEMATOCRIT 28.3 % (36.0-47.0); HEMOGLOBIN 9.5 g/dL (12.0-15.5); MEAN CORPUSCULAR HEMOGLOBIN 27.6 pg (27.0-33.4); MEAN CORPUSCULAR HGB CONC 33.4 g/dL (32.0-36.0); MEAN CORPUSCULAR VOLUME 83 fl (80-97); PLATELET COUNT 166 10^3/uL (150-450); RED BLOOD COUNT 3.42 10^6/uL (3.72-5.28); RED CELL DISTRIBUTION WIDTH 15.3 % (11.5-14.0); WHITE BLOOD COUNT 4.2 10^3/uL (4.0-10.5)
[2020-08-17 07:47] LABS: BLOOD UREA NITROGEN 49 mg/dL (7-20)
[2020-08-17 18:33] VITALS: BP 216/109
== END ==
LOC: RAD 06:06
PROVIDERS: ATTEND Physician Assistant Medical
DX: Z53.09 Procedure and treatment not carried out because of other contraindication (principal); N18.4 Chronic kidney disease, stage 4 (severe)
CPT/HCPCS: 36415; 84520; 82565; 85027; 85610; 85730; J3490 ×2; J2060

== ENCOUNTER → 2020-08-31 | Outpatient (CLI) | payer MEDICARE, MEDICAID | LOC: OD 09:50 | PROVIDERS: ATTEND Internal Medicine Nephrology | DX: E87.5 Hyperkalemia (principal) | CPT/HCPCS: 36415; 84132 ==

== ENCOUNTER 2020-10-11 06:47 | Day surgery (SDC) | payer MEDICARE, MEDICAID ==
[2020-10-08 10:04] LABS: ABSOLUTE BASOPHILS # (AUTO) 0.1 10^3/uL (0.0-0.2); ABSOLUTE EOSINOPHILS # (AUTO) 0.2 10^3/uL (0.0-0.6); ABSOLUTE LYMPHOCYTES (AUTO) 2.1 10^3/uL (0.5-4.7); ABSOLUTE MONOCYTES (AUTO) 0.3 10^3/uL (0.1-1.4); ABSOLUTE NEUT (AUTO) 1.4 10^3/uL (1.7-8.2); BASOPHILS % (AUTO) 1.4 % (0-2); EOSINOPHILS % (AUTO) 5.5 % (0-6); HEMOGLOBIN 9.5 g/dL (12.0-15.5); LYMPHOCYTES % (AUTO) 51.5 % (13-45); MEAN CORPUSCULAR HEMOGLOBIN 26.5 pg (27.0-33.4); MEAN CORPUSCULAR HGB CONC 32.9 g/dL (32.0-36.0); MEAN CORPUSCULAR VOLUME 81 fl (80-97); MONOCYTES % (AUTO) 8.1 % (3-13); PLATELET COUNT 157 10^3/uL (150-450); RED BLOOD COUNT 3.59 10^6/uL (3.72-5.28); RED CELL DISTRIBUTION WIDTH 16.6 % (11.5-14.0); SEGMENTED NEUTROPHILS % (AUTO) 33.5 % (42-78); TOTAL CELLS COUNTED % (AUTO) 100 %; WHITE BLOOD COUNT 4.2 10^3/uL (4.0-10.5)
[2020-10-08 10:39] LABS: ANION GAP 7 (5-19); BLOOD UREA NITROGEN 45 mg/dL (7-20); CALCIUM 8.8 mg/dL (8.4-10.2); CARBON DIOXIDE 22 mmol/L (22-30); CHLORIDE 110 mmol/L (98-107); GLUCOSE 89 mg/dL (75-110)
--- NOTE | 2020-10-08 12:41 | EKG REPORT ---
SEVERITY:- NORMAL ECG - SINUS RHYTHM : Confirmed by: Anderson Powell MD 08-Oct-2020 12:40:58
[~2020-10-11 06:47] MED LIST changes: +CEFAZOLIN 1 GM/D5W RTU 1 GM/50 ML RTUPB IV ONE; +CEFAZOLIN 1 GM/D5W RTU 1 GM/50 ML RTUPB IV PRN; -ENALAPRILAT DIHYDRATE INJ/PF 1.25 MG/1 ML SDV IV ONE; -LABETALOL HCL INJ 20 MG/4 ML DISP.SYRIN IV ONE; +LACTATED RINGERS 1000 ML IV PRN; +LIDOCAINE 0.5% INJ-PF (5 MG/ML) 50 ML SDV SUBCUT PRN; -LORAZEPAM INJ 2 MG/1 ML VIAL IV ONE; -VASOPRESSIN INJ 20 UNIT/1 ML VIAL ONE
[2020-10-11] MEDS ORDERED: DEXAMETHASONE SOD PHOSPHATE INJ 4 MG/1 ML VIAL ONE (06:48)
[2020-10-11] MEDS ORDERED: PROPOFOL INJ 200 MG/20 ML VIAL IV ONE ×2 (06:48→08:31)
[2020-10-11] MEDS ORDERED: FENTANYL CITRATE INJ/PF 100 MCG/2 ML AMPUL ONE (06:48)
[2020-10-11] MEDS ORDERED: ONDANSETRON HCL INJ/PF 4 MG/2 ML SDV ONE (06:48)
[2020-10-11] MEDS ORDERED: MIDAZOLAM 2 MG/2 ML INJ ONE (06:48)
[2020-10-11] MEDS ORDERED: ROPIVACAINE HCL 0.5% INJ/PF (5 MG/1 ML) 30 ML SDV ONE (08:13)
[2020-10-11] MEDS ORDERED: LIDOCAINE 2% INJ-PF (100 MG/5 ML) SYRINGE ONE (08:13)
[2020-10-11] MEDS ORDERED: HEPARIN SOD (PORCINE) 1,000 UNIT/ML 1 ML VIAL ONE ×2 (08:34→08:42)
[2020-10-11] MEDS ORDERED: LIDOCAINE 1% INJ-PF (10 MG/ML) 30 ML SDV ONE (08:34)
[2020-10-11] MEDS ORDERED: MEPERIDINE HCL/PF INJ 25 MG/1 ML DISP.SYRIN IV PRN (09:04)
[2020-10-11] MEDS ORDERED: FENTANYL CITRATE INJ/PF 100 MCG/2 ML AMPUL IV PRN ×3 (09:04)
[2020-10-11] MEDS ORDERED: DIPHENHYDRAMINE HCL 50 MG/ML VIAL IV PRN (09:04)
[2020-10-11] MEDS ORDERED: ONDANSETRON HCL INJ/PF 4 MG/2 ML SDV IV PRN (09:04)
[2020-10-11] MEDS ORDERED: MORPHINE SULFATE 10 MG/ML INJ IV PRN (09:04)
--- NOTE | 2020-10-11 10:58 | Operative Report ---
Nonrecallable Operative Report DATE OF SURGERY: 10/11/20 PREOPERATIVE DIAGNOSIS: impending renal failure POSTOPERATIVE DIAGNOSIS: same OPERATION: arteriovenous fistula creation left arm SURGEON: ZACH MARTINEZ ANESTHESIA: IV-Regional TISSUE REMOVED OR ALTERED: none COMPLICATIONS: none ESTIMATED BLOOD LOSS: 10cc INTRAOPERATIVE FINDINGS: see note PROCEDURE: Patient was brought to the operating room and awake alert stable condition after undergoing a left arm regional block by anesthesia. The left arm was prepped and draped in usual sterile fashion. After appropriate timeout and site verification procedure commenced. A longitudinal incision was made in the left wrist dissection was carried down through subcutaneous tissue with Bovie cautery and then Metzenbaum scissors. We dissected the radial artery out of its bed for a distance of approximately 6 cm. We then raised a small skin flap laterally to identify the cephalic vein which was approximately the 6 mm in diameter. We mobilized the cephalic vein for approximately 6 cm and slung both the vessels with Vesseloops to approximate them. Anastomosis then was then created between the radial artery and the cephalic vein using 6-0 running Prolene suture. The Vesseloops were removed and a good thrill resulted in the forearm. The wound was irrigated normal saline suctioned dry hemostasis noted be intact the subcutaneous tissue was reapproximated with 3-0 Vicryl and skin was reapproximated interrupted 3-0 nylon a sterile dressing was applied which completed the procedure. Estimated blood loss was 10 cc sponge needle counts were correct x2. The patient was then transferred recovery in stable condition no complications
--- NOTE | 2020-10-11 11:00 | Discharge Summary ---
Discharge Summary (SDC) - Discharge Final Diagnosis: impending renal failure Date of Surgery: 10/11/20 Discharge Date: 10/11/20 Condition: Good Discharge Diet: As Tolerated Discharge Activity: Activity As Tolerated Report the Following to Your Physician Immediately: Nausea, Vomiting, Unusual Bleeding
[2020-10-11 14:15] VITALS: BP 147/88
== END 2020-10-11 12:30 | disposition home or self-care (01) ==
LOC: OROUT 06:47
PROVIDERS: ATTEND Surgery
DX: I12.0 Hypertensive chronic kidney disease with stage 5 chronic kidney disease or end stage renal disease (principal); N18.6 End stage renal disease; Z01.812 Encounter for preprocedural laboratory examination; Z20.828 Contact with and (suspected) exposure to other viral communicable diseases; B20 Human immunodeficiency virus [HIV] disease; F12.90 Cannabis use, unspecified, uncomplicated; Z86.19 Personal history of other infectious and parasitic diseases; Z87.891 Personal history of nicotine dependence; Z79.899 Other long term (current) drug therapy
CPT/HCPCS: 93005; 36415 ×2; 84132; 85025; 80048; 93010; 36821; U0003; J2795; J2250; J0690; J3010; J3490; J2001; J2704; J1644; C9803; 87635; J1100; J2405